=== PATIENT | male | born 1940 | race Caucasian/White ===

== ENCOUNTER 2018-09-03 13:14 | Emergency (ER) | payer MEDICARE, OTHER ==
--- NOTE | 2018-09-03 13:33 | ED PDOC ---
HPI: Chest Pain Time Seen by Provider: 09/03/18 13:26 Chief Complaint (Nursing): Chest Pain History Per: Patient Onset/Duration Of Symptoms: Days (1) Current Symptoms Are (Timing): Still Present Severity: Moderate Pain Scale Rating Of: 6 Quality: Pressure Associated Symptoms: Dyspnea Modifying Factors: None Exacerbating Factors: None Additional Complaint(s): Substernal chest pressure nonradiating assoc with SOB since yesterday. Past Medical History Vital Signs: Last Vital Signs Temp Pulse 50 L 09/03/18 13:16 Resp 16 09/03/18 13:16 BP 110/55 L 09/03/18 13:16 Pulse Ox 99 09/03/18 13:16 - Medical History PMH: HTN - Surgical History Surgical History: Hernia Repair (left ) - Family History Family History: States: Unknown Family Hx - Immunization History Hx Tetanus Toxoid Vaccination: No Hx Influenza Vaccination: No Hx Pneumococcal Vaccination: No - Home Medications Home Medications: Ambulatory Orders Medication Instructions Recorded Amlodipine Besylate 10 mg PO DAILY 08/08/14 - Allergies Allergies/Adverse Reactions: Allergies Allergy/AdvReac Type Severity Reaction Status Date / Time No Known Allergies Allergy Verified 08/08/14 09:06 Review of Systems ROS Statement: Except As Marked, All Systems Reviewed And Found Negative Cardiovascular: Positive for: Chest Pain Respiratory: Positive for: Shortness of Breath Physical Exam - Reviewed Nursing Documentation Reviewed: Yes Vital Signs Reviewed: Yes - Physical Exam Appears: Positive for: Non-toxic, Uncomfortable Head Exam: Positive for: ATRAUMATIC, NORMAL INSPECTION, NORMOCEPHALIC Skin: Positive for: Normal Color, Warm, DRY Eye Exam: Positive for: EOMI, Normal appearance, PERRL ENT: Positive for: Normal ENT Inspection Neck: Positive for: Normal, Painless ROM Cardiovascular/Chest: Positive for: Regular Rate, Rhythm, Bradycardia Respiratory: Positive for: CNT, Normal Breath Sounds Gastrointestinal/Abdominal: Positive for: Normal Exam, Soft Back: Positive for: Normal Inspection Extremity: Positive for: Normal ROM Neurologic/Psych: Positive for: Alert, Oriented - Laboratory Results Result Diagrams: 09/03/18 13:25 - ECG O2 Sat by Pulse Oximetry: 99 Medical Decision Making Medical Decision Making: Discussed with Dr. Gutierrez, EKG reviewed by him, accepting MD for cath. Disposition - Clinical Impression Clinical Impression: STEMI (ST elevation myocardial infarction) - Patient ED Disposition Is Patient to be Admitted: No - Disposition Disposition: Other Institution Disposition Time: 13:43 Condition: GUARDED Forms: [facility] ([place])
[2018-09-03 13:39] LABS: BASO # 0.1 K/uL (0.0-0.2); BASO % 0.8 % (0.0-2.0); EOS # 0.1 K/uL (0.0-0.7); EOS % 1.5 % (0.0-4.0); HEMOGLOBIN 16.1 g/dL (12.0-18.0); LYMPH # 3.2 K/uL (1.0-4.3); LYMPH % 34.7 % (20.0-40.0); MEAN CELL VOLUME 86.5 fl (80.0-94.0); MEAN CORPUSCULAR HEMOGLOBIN 28.9 pg (27.0-31.0); MEAN CORPUSCULAR HGB CONC 33.4 g/dL (33.0-37.0); MEAN PLATELET VOLUME 9.2 fl (7.2-11.7); MONO # 0.6 K/uL (0.0-0.8); MONO % 6.3 % (0.0-10.0); NEUT # 5.2 K/uL (1.8-7.0); NEUT % 56.7 % (50.0-75.0); NRBC % 0.1 % (0.0-0.0); RBC 5.56 Mil/uL (4.40-5.90); RED CELL DISTRIBUTION WIDTH 13.3 % (11.5-14.5); WHITE BLOOD COUNT 9.1 K/uL (4.8-10.8)
[2018-09-03] MEDS: Sodium Chloride 0.9% 1,000 ML IV STA (13:42)
[2018-09-03 13:47] LABS: INR 1.1; PROTHROMBIN TIME 12.2 Seconds (9.8-13.1)
[2018-09-03 13:50] LABS: BLOOD UREA NITROGEN 15 mg/dl (9-20); CALCIUM 9.5 mg/dL (8.4-10.2); GFR NON-AFRICAN AMERICAN > 60; PARTIAL THROMBOPLASTIN TIME 28.5 Seconds (25.6-37.1)
--- NOTE | 2018-09-03 14:06 | RAD ---
Date of service: 09/03/2018 PROCEDURE: CHEST RADIOGRAPH, 1 VIEW HISTORY: Chest pain COMPARISON: None available. FINDINGS: LUNGS: The lungs are well inflated. There is mild pulmonary venous congestion. No focal consolidation PLEURA: No pneumothorax or pleural fluid seen. CARDIOVASCULAR: The heart is normal in size. There are mild atherosclerotic aortic calcifications. OSSEOUS STRUCTURES: No significant abnormalities. VISUALIZED UPPER ABDOMEN: Normal. OTHER FINDINGS: None. IMPRESSION: No acute findings.
[2018-09-03 14:16] VITALS: BP 166/79; O2SAT 100
[2018-09-03 14:21] VITALS: PULSE 53; RESP 18; TEMP 97.4
--- NOTE | 2018-09-04 09:44 | CARD ---
APPROVED REPORT Date of service: 09/03/2018 EKG Measurement Heart [id number] <Conclusion> Sinus bradycardia Anterolateral infarct, age undetermined Inferior injury pattern ACUTE [place] / STEMI Consider right ventricular involvement in acute inferior infarct Abnormal ECG
== END 2018-09-03 14:05 | disposition short-term general hospital (02) ==
LOC: H.ER 13:14
DX: I21.3 ST elevation (STEMI) myocardial infarction of unspecified site (principal); I10 Essential (primary) hypertension
CPT/HCPCS: 71045; 80048; 82948; 84484; 85025; 85610; 85730; 93005; 96374; 99285; J2270; J7030